=== PATIENT | male | born 1945 | race African-American/Black ===

== ENCOUNTER 2017-08-03 18:52 | Inpatient (IN) ==
[2017-08-03] MEDS ORDERED: SODIUM CHLORIDE 0.9% 500 ML IV STA (20:33)
[2017-08-03 21:43] LABS: Basophils % 0.3 % (0.0-0.8); Hematocrit 39.2 VOL% (42.0-52.0); Hemoglobin 13.8 GM/DL (14.0-18.0); Immature Granulocytes % 0.4 %; Immature Granulocytes Absolute 0.06 #; Lymphocytes # 1.1 10*3/uL (1.4-4.0); Lymphocytes % 7.3 % (21.2-54.2); Mean Corpuscular HGB Conc 35.2 GM/DL (32-36); Mean Corpuscular Hemoglobin 32 PG (27-34); Mean Corpuscular Volume 91.4 FL (87-102); Mean Platelet Volume 9.4 FL (9.6-12.0); Monocytes # 1.1 10*3/uL (0.11-0.8); Monocytes % 7.5 % (1.7-12.7); Neutrophils # 12.1 10*3/uL (1.4-7.4); Neutrophils % 84.5 % (38.7-73.9); Platelet Count 236 T/CUMM (130-400); Red Blood Count 4.29 MC/CUMM (3.8-5.5); White Blood Count 14.3 T/CUMM (4-12)
[2017-08-03 22:02] LABS: Lactic Acid 2.3 MMOL/L (0.4-2.0)
[2017-08-03 22:05] LABS: INR 0.9; Partial Thromboplastin Time 21.9 SECS (0-40)
[2017-08-03 22:09] LABS: Alanine Aminotransferase 25 U/L (16-61); Albumin 4.1 G/DL (3.4-5.0); Alkaline Phosphatase 72 U/L (45-117); Aspartate Amino Transferase 22 U/L (0-37); Blood Urea Nitrogen 27 MG/DL (7-18); Calcium 9.5 MG/DL (8.5-10.1); Glucose 113 MG/DL (74-106); Osmolality,Calculated 291.8 MOS/KG (273-304); Potassium 4.1 MMOL/L (3.5-5.1); Sodium 144 MMOL/L (136-145); Thyroid Stimulating Hormone 0.955 uIU/ml (0.358-3.74); Total Protein 7.8 G/DL (6.4-8.3)
[2017-08-03 22:11] LABS: Troponin I Only 0.123 NG/ML (0.00-0.045)
[2017-08-03 22:13] LABS: Apearance,Urine CLOUDY (Clear); Bilirubin,Urine Negative (Negative); Blood, Urine Negative (Negative); Glucose,Urine (UA) Negative (Negative); Hyaline Casts,Urine 14 /LPF (0-3); Ketones,Urine 5 mg/dL (Negative); Mucus,Urine Occasional /LPF (Occasional); Nitrite,Urine Negative (Negative); Protein,Urine Negative; RBC,Urine 1 /HPF (0-4); Urine Color Yellow (Yellow); Urine Specific Gravity 1.023 (1.001-1.035)
[2017-08-04] MEDS ORDERED: HALOPERIDOL 5 MG/ML AMP IM PRN (00:57)
[2017-08-04] MEDS: SODIUM CHLORIDE 0.9% 1,000 ML IV SCH ×3 (03:18→17:00)
[2017-08-04 07:37] LABS: Basophils % 0.3 % (0.0-0.8); Eosinophils % 0.1 % (0.00-10.9); Hematocrit 37.8 VOL% (42.0-52.0); Hemoglobin 12.8 GM/DL (14.0-18.0); Immature Granulocytes % 0.3 %; Immature Granulocytes Absolute 0.03 #; Lymphocytes # 1.9 10*3/uL (1.4-4.0); Lymphocytes % 19.4 % (21.2-54.2); Mean Corpuscular HGB Conc 33.9 GM/DL (32-36); Mean Corpuscular Hemoglobin 31 PG (27-34); Mean Corpuscular Volume 92.6 FL (87-102); Mean Platelet Volume 10.1 FL (9.6-12.0); Monocytes % 9.6 % (1.7-12.7); Neutrophils % 70.3 % (38.7-73.9); Platelet Count 244 T/CUMM (130-400); Red Blood Count 4.08 MC/CUMM (3.8-5.5); Red Cell Distribution Width 12.9 % (9.3-17.3)
[2017-08-04 08:09] LABS: Calcium 9.2 MG/DL (8.5-10.1); Osmolality,Calculated 291.6 MOS/KG (273-304); Potassium 3.9 MMOL/L (3.5-5.1)
[2017-08-04] MEDS ORDERED: NON-FORMULARY MEDICATION (Ergocalciferol (Vitamin D2) [Vitamin D2] 2,000 UNIT) PO SCH (09:00)
[2017-08-04] MEDS ORDERED: OLANZapine 2.5 MG TABLET PO SCH (09:00)
[2017-08-04] MEDS ORDERED: RASAGILINE MESYLATE 1 MG PO SCH (09:00)
[2017-08-04] MEDS: BRIMONIDINE 0.15% OPH SOLN 1 DROP/DROPS BOTTLE BOTH EYES SCH ×3 (09:15→20:51)
[2017-08-04] MEDS: DORZOLAMIDE/TIMOLOL OPH SOLN 10 ML BOTTLE BOTH EYES SCH ×2 (09:15→20:51)
[2017-08-04] MEDS: CARBIDOPA/LEVODOPA 25-100 MG TABLET PO SCH ×3 (09:15→20:51)
[2017-08-04] MEDS: ENOXAPARIN 40 MG/0.4 ML SYRINGE SUBCUT SCH (09:15)
[2017-08-04] MEDS ORDERED: BIMATOPROST 0.01% OPH SOLN 2.5 ML BOTTLE BOTH EYES SCH (21:00)
[2017-08-05] MEDS: SODIUM CHLORIDE 0.9% 1,000 ML IV SCH (06:41)
[2017-08-05] MEDS: DORZOLAMIDE/TIMOLOL OPH SOLN 10 ML BOTTLE BOTH EYES SCH (08:23)
[2017-08-05] MEDS: BRIMONIDINE 0.15% OPH SOLN 1 DROP/DROPS BOTTLE BOTH EYES SCH (08:23)
[2017-08-05] MEDS: CARBIDOPA/LEVODOPA 25-100 MG TABLET PO SCH (08:23)
[2017-08-05] MEDS: ENOXAPARIN 40 MG/0.4 ML SYRINGE SUBCUT SCH (08:23)
[2017-08-05] MEDS ORDERED: Pimavanserin Tartrate [Nuplazid] 34 MG PO SCH (09:00)
[2017-08-05 11:36] VITALS: BP 119/72
== END 2017-08-05 13:13 | DRG 885 ==
LOC: N.ED 18:52 → N.EDINP 08-04 00:40 → N.5E 08-04 02:22

== ENCOUNTER 2021-08-24 17:13 | Observation (INO) ==
[2021-08-24] MEDS ORDERED: ONDANSETRON 4 MG/2 ML VIAL IV STA (18:30)
[2021-08-24] MEDS ORDERED: MORPHINE 2 MG/1 ML SYRINGE IV STA (18:33)
[2021-08-24] MEDS ORDERED: ACETAMINOPHEN 325 MG TABLET PO PRN (22:11)
[2021-08-24] MEDS ORDERED: DEXTROSE 10% 250 ML BAG IV PRN (22:11)
[2021-08-24] MEDS ORDERED: MORPHINE 2 MG/1 ML SYRINGE IV PRN (22:11)
[2021-08-24] MEDS ORDERED: GLUCAGON 1 MG VIAL IM PRN (22:11)
[2021-08-24] MEDS ORDERED: ONDANSETRON 4 MG/2 ML VIAL IV PRN (22:11)
[2021-08-24 22:40] LABS: Basophils % 0.1 % (0.0-0.8); Eosinophils % 0.3 % (0.00-10.9); Hemoglobin 13.6 GM/DL (14.0-18.0); Immature Granulocytes % 0.4 %; Immature Granulocytes Absolute 0.03 #; Lymphocytes % 14.1 % (21.2-54.2); Mean Corpuscular Volume 93.5 FL (87-102); Mean Platelet Volume 9.4 FL (9.6-12.0); Monocytes # 0.6 10*3/uL (0.11-0.8); Monocytes % 7.9 % (1.7-12.7); Neutrophils % 77.2 % (38.7-73.9); Platelet Count 181 T/CUMM (130-400); Red Blood Count 4.28 MC/CUMM (3.8-5.5); Red Cell Distribution Width 12.5 % (9.3-17.3); White Blood Count 7.3 T/CUMM (4-12)
[2021-08-24 22:59] LABS: Albumin 3.1 G/DL (3.4-5.0); Bilirubin,Total 0.7 MG/DL (0.20-1.00); Calcium 8.7 MG/DL (8.5-10.1); Osmolality,Calculated 280.4 MOS/KG (273-304); Potassium 4.1 MMOL/L (3.5-5.1); Total Protein 7.4 G/DL (6.4-8.2)
[2021-08-25] MEDS ORDERED: PANTOPRAZOLE 40 MG TABLET PO SCH (09:00)
[2021-08-25 13:12] VITALS: BP 139/84
== END 2021-08-25 13:00 ==
LOC: N.ED 17:13 → N.EDINP 17:13 → SUATTDRO 22:11 → N.EDINP 08-25 13:00
PROVIDERS: ADMIT Internal Medicine; ATTEND Hospitalist